=== PATIENT | male | born 1975 | race Two or more races ===

== ENCOUNTER 2024-04-09 00:44 | Emergency (ER) | payer OTHER ==
[~2024-04-09] VITALS: Ht 177.8 cm; Wt 82.0 kg
[2024-04-09 01:03] VITALS: BP 128/77; PULSE 70; RESP 18; TEMP 98.2; O2SAT 96
[2024-04-09] MEDS: ACETAMINOPHEN 500 MG TABLET PO ONE (02:20)
[2024-04-09] MEDS: IBUPROFEN 600 MG TABLET PO ONE (02:20)
[2024-04-09] MEDS: TraMADol HCL 50 MG TABLET PO ONE (02:20)
[2024-04-09] MEDS: TOBRAMYCIN/DEXAMETHASONE 5 ML OPHTHALMIC SUSPENSION OD ONE (02:21)
== END 2024-04-09 02:29 | disposition home or self-care (01) ==
LOC: EMS 00:46
DX: H11.001 Unspecified pterygium of right eye (principal); H57.11 Ocular pain, right eye; R51.9 Headache, unspecified
CPT/HCPCS: 99284; Z7502; Z7610